=== PATIENT | female | born 1960 | race Caucasian/White ===

== ENCOUNTER 2022-01-12 13:23 | Emergency (ER) | payer OTHER ==
[~2022-01-12] VITALS: Ht 162.6 cm; Wt 84.8 kg
[~2022-01-12 13:23] MED LIST: CIPR500T4 PO; HYDR-2579 PO; METR500T14 PO
[2022-01-12 14:33] VITALS: BP 131/63
[2022-01-12] MEDS ORDERED: cefTRIAXone SOD 1,000 MG VL IM ONE (17:00)
[2022-01-12] MEDS ORDERED: CLIN300C8 PO (17:32)
[2022-01-12] MEDS ORDERED: ACET-1158 PO (17:32)
[2022-01-12] MEDS ORDERED: CEPH-509 PO (17:32)
== END 2022-01-12 17:44 | disposition home or self-care (01) ==
LOC: ER 13:23
DX: S90.851A Superficial foreign body, right foot, initial encounter (principal); L03.115 Cellulitis of right lower limb; I10 Essential (primary) hypertension; E11.9 Type 2 diabetes mellitus without complications; Z90.49 Acquired absence of other specified parts of digestive tract; Z90.710 Acquired absence of both cervix and uterus; Z79.2 Long term (current) use of antibiotics; Z79.899 Other long term (current) drug therapy; X58.XXXA Exposure to other specified factors, initial encounter; Y93.89 Activity, other specified; Y92.89 Other specified places as the place of occurrence of the external cause; Y99.8 Other external cause status
CPT/HCPCS: 73630; 96372; 99284; J0696